=== PATIENT | female | born 1985 | race Caucasian/White ===

== ENCOUNTER 2018-04-21 18:34 | Emergency (ER) | payer OTHER ==
[~2018-04-21] VITALS: Ht 161.3 cm; Wt 61.3 kg
[2018-04-21] MEDS ORDERED: ALBU90AE INH (19:33)
[2018-04-21 20:12] VITALS: BP 127/81
== END 2018-04-21 20:14 | disposition home or self-care (01) ==
LOC: ED 19:59
DX: S82.62XA Displaced fracture of lateral malleolus of left fibula, initial encounter for closed fracture (principal); J45.909 Unspecified asthma, uncomplicated; X36.1XXA Avalanche, landslide, or mudslide, initial encounter; Y93.29 Activity, other involving ice and snow; Y92.89 Other specified places as the place of occurrence of the external cause; Y99.8 Other external cause status
CPT/HCPCS: 29515; 99283